=== PATIENT | male | born 1960 | race African-American/Black ===

== ENCOUNTER 2020-08-18 22:02 | Emergency (ER) | payer SELFPAY ==
[~2020-08-18] VITALS: Ht 182.9 cm; Wt 84.0 kg
[2020-08-18 22:29] VITALS: BP 158/90
== END 2020-08-18 23:12 | disposition home or self-care (01) ==
LOC: ER 22:02
DX: J02.9 Acute pharyngitis, unspecified (principal); F17.290 Nicotine dependence, other tobacco product, uncomplicated
CPT/HCPCS: 99283